=== PATIENT | male | born 1980 | race Caucasian/White ===

== ENCOUNTER 2020-06-16 02:38 | Emergency (ER) | payer BC ==
[~2020-06-16] VITALS: Ht 177.8 cm; Wt 104.3 kg
[2020-06-16 02:38] VITALS: BP 110/58
[2020-06-16] MEDS ORDERED: NACL 0.9% 1,000 ML IV ONE (03:00)
[2020-06-16] MEDS ORDERED: KETOROLAC 30 MG/ML VIAL IVP ONE (03:00)
[2020-06-16 03:33] LABS: BARBITURATE, URINE NEGATIVE ng/ml (NEG <=200); BENZODIAZEPINE, URINE POSITIVE ng/mL (NEG <=200); COCAINE, URINE NEGATIVE ng/mL (NEG <=300)
[2020-06-16 03:34] LABS: CANNABINOID, URINE NEGATIVE ng/mL (NEG <=50); OPIATE, URINE NEGATIVE ng/mL (NEG <=2000); PHENCYCLIDINE SCREEN,URINE NEGATIVE ng/mL (NEG <=25)
[2020-06-16 03:39] LABS: ANION GAP 14.6 (8-16); CARBON DIOXIDE 24.9 mmol/L (21-32); CREATININE 0.7 mg/dL (0.6-1.3); POTASSIUM 3.5 mmol/L (3.5-5.1)
[2020-06-16] MEDS ORDERED: fentaNYL citrate 0.05 MG/ML VIAL IVP ONE (05:10)
[2020-06-16] MEDS ORDERED: HYDROcodone/APAP 5/325 MG 1 TAB TAB PO ONE (05:50)
[2020-06-16 06:48] VITALS: BP 113/67
== END 2020-06-16 06:48 | disposition home or self-care (01) ==
LOC: MED 02:38
DX: M25.562 Pain in left knee (principal); M25.561 Pain in right knee; E11.9 Type 2 diabetes mellitus without complications; I10 Essential (primary) hypertension; W06.XXXA Fall from bed, initial encounter; Y93.89 Activity, other specified; Y92.89 Other specified places as the place of occurrence of the external cause; Y99.8 Other external cause status
CPT/HCPCS: 36415; 73560; 80048; 80305; 96361; 96374; 96375; 99284; G0482; J1885; J3010; J7030

== ENCOUNTER 2020-06-16 22:06 | Inpatient (IN) | payer BC, SELFPAY ==
[~2020-06-16] VITALS: Ht 180.3 cm; Wt 104.3 kg
[2020-06-16 22:12] VITALS: BP 141/81
--- NOTE | 2020-06-16 22:12 | NUR ---
to bed ambulatory
[2020-06-16] MEDS ORDERED: ONDANSETRON 4 MG/2 ML VIAL IVP ONE (22:35)
[2020-06-16] MEDS ORDERED: NACL 0.9% 1,000 ML IV ONE (22:35)
--- NOTE | 2020-06-16 22:45 | NUR ---
39 Y/O MALE PRESENTED TO THE ED C/O N/V BLOODY EMESIS ACCOMPANIED BY 8/10 DIFFUSE INTERMITTENT ABD PAIN THAT STARTED AT 2000 TODAY. PT IS A/OX4, NO VISIBLE DISTRESS NOTED. NO ABD GUARDING. ABD IS SOFT AND MILDY TENDER TO PALPATION. ACTIVE BOWEL SOUNDS IN ALL 4 QUADRANTS. NO DISTENTION OR MASSES NOTED. PMH: HTN, DM NKA
--- NOTE | 2020-06-16 22:50 | NUR ---
PT HAD 800ML OF BLOODY EMESIS
[2020-06-16 22:58] LABS: BASOPHILS # (AUTO) 0.1 K/uL (0.00-0.22); BASOPHILS % (AUTO) 0.7 % (0.0-2.0); EOSINOPHILS # (AUTO) 0.1 K/uL (0-0.4); EOSINOPHILS % (AUTO) 0.8 % (0.0-4.0); HEMATOCRIT 35.6 % (36-52); HEMOGLOBIN 11.9 g/dL (12.0-18.0); LYMPHOCYTES % (AUTO) 13.1 % (20.5-51.1); MEAN CORPUSCULAR HEMOGLOBIN 29 pg (27-31); MEAN CORPUSCULAR HGB CONC 33 g/dL (33-37); MEAN CORPUSCULAR VOLUME 87.6 fL (80-94); MONOCYTES # (AUTO) 0.7 K/uL (0.8-1.0); MONOCYTES % (AUTO) 9.1 % (1.7-9.3); NEUTROPHILS # (AUTO) 5.9 K/uL (1.8-7.7); NEUTROPHILS % (AUTO) 76.3 % (42.2-75.2); PLATELET COUNT (AUTO) 57 K/uL (140-450); RED BLOOD CELL COUNT(AUTO) 4.06 MIL/uL (4.20-6.10); RED CELL DISTRIBUTION WIDTH 17.6 % (11.6-13.7); WHITE BLOOD COUNT (AUTO) 7.8 K/uL (4.8-10.8)
--- NOTE | 2020-06-16 23:00 | NUR ---
18G IV INITIATED IN THE RIGHT WRIST
[2020-06-16] MEDS ORDERED: PANTOPRAZOLE 40 MG INJ VIAL IVP ONE (23:05)
--- NOTE | 2020-06-16 23:05 | NUR ---
PT IS SITTING UPRIGHT WITH EMESIS BASIN, PT IS CONNECTED TO THE TAX COLLECTION COORDINATOR. BED IS LOCKED AND IN LOWEST POSITION, SIDE RAILSX1.
--- NOTE | 2020-06-16 23:12 | NUR ---
XRAY AT BEDSIDE
[2020-06-16 23:18] LABS: PROTHROMBIN TIME 13.1 secs (10.8-13.4)
[2020-06-16 23:20] LABS: ALBUMIN 3.3 g/dL (3.4-5.0); ANION GAP 13.9 (8-16); CARBON DIOXIDE 24.8 mmol/L (21-32); CREATININE 0.7 mg/dL (0.6-1.3); POTASSIUM 3.7 mmol/L (3.5-5.1); TOTAL BILIRUBIN 4.1 mg/dL (0.0-1.0)
[2020-06-16] MEDS: PANTOPRAZOLE 80 MG in NACL 0.9% 100 ML IVP SCH (23:59)
[2020-06-17] VITALS (13 sets, daily range): BP systolic 86–144; BP diastolic 34–64
--- NOTE | 2020-06-17 | NUR ---
PT HAD 600 ML OF BLOODY EMESIS
--- NOTE | 2020-06-17 00:05 | NUR ---
PT IS SITTING UPRIGHT IN SEMI FOWLERS POSITION. BED IS LOCKED AND IN LOWEST POSITION. SIDE RAILX1. PT IS CONNECTED TO THE COKEMAN. PT IS NOT IN ANY ACUTE DISTRESS AT THIS TIME. CALL LIGHT WITHIN REACH. MEDS RUNNING PER MD ORDERS.
--- NOTE | 2020-06-17 00:20 | NUR ---
YUMIKO COLLECTED AND WALKED OVER TO LAB
--- NOTE | 2020-06-17 00:27 | NUR ---
Spoke w/ Shreya from [facility] regarding pt clinicals at this time. Per Shreya , she has paged Dr. Truong and will update us for authorization.
--- NOTE | 2020-06-17 00:30 | NUR ---
CT CONSENT SIGNED AND PLACED IN CHART
--- NOTE | 2020-06-17 00:43 | NUR ---
HOTEL SERVICE SUPERVISOR AT BEDSIDE PREPARING TO TAKE PT TO CT
--- NOTE | 2020-06-17 00:50 | NUR ---
ADEEL GEORGE AT BEDSIDE FOR RE-EVALUATION
[2020-06-17] MEDS ORDERED: ONDANSETRON 4 MG/2 ML VIAL ONE (00:55)
[2020-06-17] MEDS ORDERED: MORPHINE SULFATE 2 MG/ML SYR IVP ONE (01:00)
[2020-06-17] MEDS ORDERED: ONDANSETRON 4 MG/2 ML VIAL IVP ONE ×2 (01:00→01:10)
--- NOTE | 2020-06-17 01:00 | NUR ---
PT IS SITTING UPRIGHT IN SEMI FOWLERS POSITION. BED IS LOCKED AND IN LOWEST POSITION. SIDE RAILX1. PT IS CONNECTED TO THE RANCH HAND. PT IS NOT IN ANY ACUTE DISTRESS AT THIS TIME. CALL LIGHT WITHIN REACH. MEDS RUNNING PER MD ORDERS.
--- NOTE | 2020-06-17 01:18 | NUR ---
PT HAD 300 ML OF BLOODY EMESIS
[2020-06-17] MEDS ORDERED: OCTREOTIDE ACETATE 100 MCG/ML VIAL IV STA (01:20)
[2020-06-17] MEDS ORDERED: cefTRIAXone 1,000 MG VIAL ONE (01:43)
--- NOTE | 2020-06-17 01:46 | NUR ---
PT BACK FROM CT VIA RAHUL
[2020-06-17] MEDS ORDERED: OCTREOTIDE ACETATE 1.25 MG in NACL 0.9% 250 ML IV STA (01:56)
--- NOTE | 2020-06-17 02:05 | NUR ---
PT IS SITTING UPRIGHT IN SEMI FOWLERS POSITION. BED IS LOCKED AND IN LOWEST POSITION. SIDE RAILX1. PT IS CONNECTED TO THE AIRPLANE NAVIGATOR. PT IS NOT IN ANY ACUTE DISTRESS AT THIS TIME. CALL LIGHT WITHIN REACH. MEDS RUNNING PER MD ORDERS.
[2020-06-17] MEDS ORDERED: OCTREOTIDE ACETATE 1000 MCG/5 ML VIAL ONE (02:08)
[2020-06-17] MEDS ORDERED: OCTREOTIDE ACETATE 1.25 MG in NACL 0.9% 250 ML IV SCH ×2 (02:10→12:20)
[2020-06-17] MEDS ORDERED: PANTOPRAZOLE 80 MG in NACL 0.9% 100 ML IVP SCH ×2 (02:10→12:20)
--- NOTE | 2020-06-17 02:15 | NUR ---
ERMD AT BEDSIDE FOR RE-EVALUATION
[2020-06-17] MEDS ORDERED: OCTREOTIDE ACETATE 0.05 MG in NACL 0.9% 250 ML IV SCH (02:20)
[2020-06-17] MEDS ORDERED: MAG SULF 2000 MG/WATER PREMIX 50 ML IV PRN (02:20)
[2020-06-17] MEDS ORDERED: HYDROcodone/APAP 5/325 MG 1 TAB TAB PO PRN (02:20)
[2020-06-17] MEDS ORDERED: MORPHINE SULFATE 4 MG/ML SYR IVP PRN (02:20)
[2020-06-17] MEDS ORDERED: MAGNESIUM OXIDE 400 MG TAB PO PRN (02:20)
[2020-06-17] MEDS ORDERED: LORazepam 1 MG TAB PO PRN (02:20)
[2020-06-17] MEDS ORDERED: HYDROmorphone 1 MG/ML AMP IVP PRN (02:20)
[2020-06-17] MEDS ORDERED: ACETAMINOPHEN 325 MG TAB PO PRN (02:20)
[2020-06-17] MEDS ORDERED: KCL 20 MEQ/WATER INJ PREMIX 200 ML IV PRN (02:20)
[2020-06-17] MEDS ORDERED: POTASSIUM CHLORIDE 10 MEQ TABER PO PRN (02:20)
--- NOTE | 2020-06-17 02:23 | NUR ---
pt is had another 300 ml of blood emesis
--- NOTE | 2020-06-17 02:30 | NUR ---
SEIZURE PRECAUTIONS IN PLACE PER ADMIT ORDERS.
[2020-06-17 02:35] LABS: BASOPHILS # (AUTO) 0.1 K/uL (0.00-0.22); BASOPHILS % (AUTO) 0.8 % (0.0-2.0); EOSINOPHILS # (AUTO) 0.1 K/uL (0-0.4); EOSINOPHILS % (AUTO) 0.8 % (0.0-4.0); HEMATOCRIT 30.1 % (36-52); HEMOGLOBIN 10.2 g/dL (12.0-18.0); LYMPHOCYTES # (AUTO) 0.9 K/uL (2.0-11.5); LYMPHOCYTES % (AUTO) 8.5 % (20.5-51.1); MEAN CORPUSCULAR HEMOGLOBIN 30 pg (27-31); MEAN CORPUSCULAR HGB CONC 34 g/dL (33-37); MEAN CORPUSCULAR VOLUME 87.8 fL (80-94); MONOCYTES # (AUTO) 0.5 K/uL (0.8-1.0); MONOCYTES % (AUTO) 4.9 % (1.7-9.3); NEUTROPHILS # (AUTO) 8.6 K/uL (1.8-7.7); PLATELET COUNT (AUTO) 59 K/uL (140-450); RED BLOOD CELL COUNT(AUTO) 3.43 MIL/uL (4.20-6.10); RED CELL DISTRIBUTION WIDTH 17.7 % (11.6-13.7); WHITE BLOOD COUNT (AUTO) 10.1 K/uL (4.8-10.8)
--- NOTE | 2020-06-17 02:36 | NUR ---
DR. PADILLA SHOULD BE HERE WITHIN THE HOUR
--- NOTE | 2020-06-17 02:36 | NUR ---
SPOKE WITH DR. PADILLA (ICU DR) TO GIVE PT STATUS UPDATE
--- NOTE | 2020-06-17 02:45 | NUR ---
PT PLACED ON 2L OF SUPPLEMENTAL OXYGEN DUE TO THE PT C/O OF DIFFICULTY BREATHING SAO2@97% ON RA. AND PT SAO2@100% ON 2L NC.
--- NOTE | 2020-06-17 03:00 | NUR ---
PT IS SITTING UPRIGHT IN SEMI FOWLERS POSITION. BED IS LOCKED AND IN LOWEST POSITION. SIDE RAILX1. PT IS CONNECTED TO THE IS/IT PROJECT MANAGER. PT IS NOT IN ANY ACUTE DISTRESS AT THIS TIME. CALL LIGHT WITHIN REACH. MEDS RUNNING PER MD ORDERS.
[2020-06-17] MEDS ORDERED: NACL 0.9% IV SCH (03:20)
[2020-06-17] MEDS ORDERED: OCTREOTIDE ACETATE IV SCH (03:20)
--- NOTE | 2020-06-17 04:00 | NUR ---
PT IS SITTING UPRIGHT IN SEMI FOWLERS POSITION. BED IS LOCKED AND IN LOWEST POSITION. SIDE RAILX1. PT IS CONNECTED TO THE BIAS MACHINE OPERATOR HELPER. PT IS NOT IN ANY ACUTE DISTRESS AT THIS TIME. CALL LIGHT WITHIN REACH. MEDS RUNNING PER MD ORDERS.
[2020-06-17] MEDS: LACTATED RINGERS 1,000 ML IV SCH ×2 (04:33→14:50)
[2020-06-17] MEDS: POTASSIUM CHL 40 MEQ/ D5-1/2NS 1,000 ML IV SCH ×3 (04:34→18:04)
[2020-06-17] MEDS ORDERED: LORazepam 2 MG/ML VIAL IVP PRN (04:45)
--- NOTE | 2020-06-17 04:55 | NUR ---
PT HAD 50 ML OF BLOODY EMESIS
--- NOTE | 2020-06-17 05:00 | NUR ---
PT IS SITTING UPRIGHT IN SEMI FOWLERS POSITION. BED IS LOCKED AND IN LOWEST POSITION. SIDE RAILX1. PT IS CONNECTED TO THE CABINET INSTALLER. PT IS NOT IN ANY ACUTE DISTRESS AT THIS TIME. CALL LIGHT WITHIN REACH. MEDS RUNNING PER MD ORDERS.
--- NOTE | 2020-06-17 05:15 | NUR ---
URINE SPECIMEN COLLECTED AND HANDED OVER TO ELECTRONIC EQUIPMENT REPAIRER RAE
--- NOTE | 2020-06-17 05:57 | NUR ---
LIGHTS TURNED OFF FOR PT COMFORT. BED IS IN SEMI FOWLERS POSITION. PT IS CONNECTED TO THE SEMICONDUCTOR EQUIPMENT TECHNICIAN. BED IS LOCKED AND IN LOWEST POSITION. SEIZURE PRECAUTIONS IN PLACE. CALL LIGHT WITHIN REACH. MEDS AND FLUIDS RUNNING PER MD ORDERS.
[2020-06-17 06:07] LABS: BARBITURATE, URINE NEGATIVE ng/ml (NEG <=200)
[2020-06-17 06:08] LABS: BENZODIAZEPINE, URINE POSITIVE ng/mL (NEG <=200); CANNABINOID, URINE NEGATIVE ng/mL (NEG <=50); COCAINE, URINE NEGATIVE ng/mL (NEG <=300); OPIATE, URINE POSITIVE ng/mL (NEG <=2000); PHENCYCLIDINE SCREEN,URINE NEGATIVE ng/mL (NEG <=25)
--- NOTE | 2020-06-17 06:30 | NUR ---
PT HAD 150 ML OF BLOOD EMESIS
--- NOTE | 2020-06-17 06:49 | NUR ---
PT PROVIDED WITH SOME WATER TO RINSE OUT HIS MOUTH.
--- NOTE | 2020-06-17 07:00 | NUR ---
PEDIATRICIAN MANAGING PARTNER AT BEDSIDE
--- NOTE | 2020-06-17 07:05 | NUR ---
ULTRASOUND AT BEDSIDE
[2020-06-17 07:09] LABS: BASOPHILS % (AUTO) 0.2 % (0.0-2.0); HEMATOCRIT 26.2 % (36-52); HEMOGLOBIN 8.8 g/dL (12.0-18.0); LYMPHOCYTES # (AUTO) 0.8 K/uL (2.0-11.5); LYMPHOCYTES % (AUTO) 8.7 % (20.5-51.1); MEAN CORPUSCULAR HEMOGLOBIN 30 pg (27-31); MEAN CORPUSCULAR HGB CONC 33 g/dL (33-37); MEAN CORPUSCULAR VOLUME 88.9 fL (80-94); MONOCYTES # (AUTO) 0.4 K/uL (0.8-1.0); MONOCYTES % (AUTO) 4.3 % (1.7-9.3); NEUTROPHILS # (AUTO) 7.9 K/uL (1.8-7.7); NEUTROPHILS % (AUTO) 86.8 % (42.2-75.2); PLATELET COUNT (AUTO) 63 K/uL (140-450); RED BLOOD CELL COUNT(AUTO) 2.95 MIL/uL (4.20-6.10); RED CELL DISTRIBUTION WIDTH 17.9 % (11.6-13.7); WHITE BLOOD COUNT (AUTO) 9.1 K/uL (4.8-10.8)
--- NOTE | 2020-06-17 07:10 | NUR ---
ADEEL MARROQUIN AT BEDSIDE FOR HYPOTENSION
--- NOTE | 2020-06-17 07:20 | NUR ---
GAVE REPORT TO NEELAM LUNA FOR TRANSFER OF CARE AT THIS TIME.
--- NOTE | 2020-06-17 07:21 | NUR ---
RECEIVED REPORT FROM FARZANA RICHTER. TRANSFER OF CARE AT THIS TIME.
--- NOTE | 2020-06-17 07:25 | NUR ---
US TECH AT PT BEDSIDE
--- NOTE | 2020-06-17 07:26 | NUR ---
PHARMACY NOTIFIED TO BRING LIBRIUM 10 MG CAPSULES
--- NOTE | 2020-06-17 07:56 | NUR ---
PT VOMITED COAGULATED BRIGHT RED BLOOD- 800 ML. PT HOB RAISED TO 90. PT USED BEDSIDE URINAL- 500 ML JUAN LUIS URINE
[2020-06-17 08:07] LABS: APPEARANCE,URINE CLEAR (CLEAR); BILIRUBIN,URINE NEGATIVE (NEGATIVE); BLOOD, URINE NEGATIVE (NEGATIVE); COLOR,URINE ORANGE (YELLOW); LEUKOCYTE ESTERASE ,URINE NEGATIVE (NEGATIVE); NITRITE, URINE NEGATIVE (NEGATIVE); UGLUCOSE 3+ (NEGATIVE)
[2020-06-17 08:30] LABS: RBC,URINE NONE SEEN /HPF (0-5); WBC,URINE 0-5 /HPF (0-5)
--- NOTE | 2020-06-17 08:41 | NUR ---
PT RESTING IN BED WITH HOB 45 DEGREES. BED IN LOWEST POSITION WITH BRAKES LOCKED. EVEN AND UNLABORED RESPIRATIONS OBSERVED.
[2020-06-17] MEDS: DOCUSATE SODIUM 100 MG GELCAP PO SCH (09:00)
--- NOTE | 2020-06-17 09:23 | NUR ---
SOCIAL WORK NOTE: Patient's Orientation Unable To Assess Information Provided By CAROLANN DE LOS SANTOS - SIGNIFICANT OTHER Comments SW WAS UNABLE TO MEET PATIENT AT BEDSIDE. SW COMPLETED ASSESSMENT WITH PATIENT'S SIGNIFICANT OTHER/FIANCE. [place] Paver Operator, Realtionship and Phone Number CAROLANN MAGALI SIGNIFICANT OTHER [phone] Healthcare Power of Lpn Rn No Does Patient Have a POLST No Identifying Problems No Social Work Triggers Is A Social Work Consult Needed No Mandate Report Filed No Explanation Of Identifying Problems PATIENT IS A 39-YEAR-OLD MALE ADMITTED FOR ACUTE GASTRO INTESTINAL BLEED. PATIENT HAS PMHX OF DIABETES AND HYPERTENSION. PATIENT'S SIGNIFICANT OTHER DENIED SUBSTANCE ABUSE OR MENTAL HEALTH HISTORY. Admitted From Home Pre-Admission Level Of Functioning Status Independent/Ambulatory Prior Resources/Services Used In Last 12 Months No Prior Resources Used Prior DME No Prior DME Used Dialysis Comments N/A Living Situation Lives W/Significant Other House Patient Had Caregiver No Home Support No Caregiver Issues Financial Issues No Known Financial Issue Referral To The Financial Counselor Needed No Factors/Needs No D/C Needs Identified Pt/Rep Participated In Discharge Plan Yes Patient/Family Agress With Discharge Plan Yes Discharge Plan Comments TENTATIVE DISCHARGE PLAN IS FOR PATIENT TO RETURN HOME. DC Plan Status Initiated
--- NOTE | 2020-06-17 09:27 | NUR ---
CALLED PHARMACY FOR PROTONIX 80MG, THEY WILL BRING IT OVER.
--- NOTE | 2020-06-17 09:41 | NUR ---
GAVE REPORT TO RAIN RN FOR TRANSFER TO ICU. BED NOT READY. PENDING TRANSFER
--- NOTE | 2020-06-17 09:55 | NUR ---
PT DRY HEAVING AND NAUSEOUS WITH 0ML EMESIS. PT HOB 90 DEGREES
[2020-06-17] MEDS: PANTOPRAZOLE 80 MG in NACL 0.9% 100 ML IVP SCH (10:09)
--- NOTE | 2020-06-17 10:30 | NUR ---
PLATELETS STILL INFUSING AT TIME OF TRANSFER AT 60ML/HR. RAIN RICHTER MADE AWARE.
--- NOTE | 2020-06-17 10:53 | NUR ---
Patient will be admitted to care of Gordy Cantu. Admited to ICU. Will go to room2. Belongings list completed. Report to Jillian RICHTER.
--- NOTE | 2020-06-17 10:53 | NUR ---
RECEIVED PT FROM LIFE SKILLS INSTRUCTORJEREMY AT THIS TIME. PT AWAKE, A/O X4. DENIES PAIN. PUPILS 3MM, PERRL. CONTINUES ON O2 VIA NC @ 2 LPM. SPO2 99%. NO SOB OBSERVED. LUNGS CLEAR THROUGHOUT. +S1, S2 UPON AUSCULTATION. ST ON MONITOR AT 116. BOWEL SOUNDS ACTIVE X4. NO ABD DISTENTION NOTED. DENIES ABD DISCOMFORT. PT REMAINS NPO EXCEPT MEDS. 18G TO RT AC INFUSING PLATELETS. 20G TO RT FA INFUSING SANDOSTATIN AND PROTONIX. 22G TO LT HAND INFUSING D5 1/2 NS WITH POTASSIUM CHLORIDE AND LR. SEE IV SPREADSHEET FOR DETAILS. SKIN WARM, DRY, AND INTACT WITH SCATTERED ECCHYMOSIS NOTED TO BI UPPER EXTREMITIES DUE TO IV PLACEMENT ATTEMPTS. NO ACTIVE BLEEDING OBSERVED. SAFETY PRECAUTIONS IN PLACE WITH BED LOW AND LOCKED. EDUCATED PT ON IMPORTANCE OF REQUESTING ASSISTANCE WHEN REPOSITIONING. WILL CONT TO MONITOR FOR CHANGES.
--- NOTE | 2020-06-17 11:57 | NUR ---
DISCHARGE PLANNING: THIS IS A 39 Y/O MALE PATIENT FROM HOME, WHO CAME IN DUE TO VOMITING ASSOCIATED WITH ABDOMINAL PAIN. PAST MEDICAL HISTORY INCLUDE HTN AND DM 2. INITIAL DIAGNOSIS OF ACUTE GI BLEED. CURRENT LABS INCLUDE WBC 11.5, H/H 6.9/21.1, NA/K 136/3.7, BUN/CREA 7/0.7. RAPID COVID NEGATIVE. PULMO/CRITICAL CARE AND GI CONSULTS IN PLACE. ON OCTREOTIDE DRIP, ROCEPHIN. ABDOMINAL U/S SHOWED ACUTE CHOLECYSTITIS, HEPATOMEGALY WITH STEATOSIS, SPLENOMEGALY. DC PLAN PENDING ON PATIENT'S RESPONSE TO TREATMENT. Addendum: 06/17/20 at 1521 by Manisha Beach CM POC DISCUSSED WITH DR. VALLES. PER DR. VALLES, WILL WAIT FOR GI'S RECOMMENDATIONS. Addendum: 06/17/20 at 1549 by Manisha Beach CM DIANE DONOVAN OF [facility] UPDATED OF THE PATIENT'S CONDITION SHE PROVIDED ME WITH VERBAL AUTH [id number]. Addendum: 06/18/20 at 1109 by Manisha Beach CM S/P EGD WITH DR WHITMAN 06/17/2020. STILL ON PROTONIX IV AND SANDOSTATIN DRIP. LATEST H/H 7.9/23.7 AFTER 2 "U" PRBC. FOR POSSIBLE DOWNGRADE TODAY. Addendum: 06/18/20 at [address] CM DR. VALLES UPDATED OF THE PATIENT'S CONDITION. OK TO DOWNGRADE TO TELE. ORDER TRANSCRIBED. PRIMARY NEELAM MANTILLA MADE AWARE. Addendum: 06/18/20 at 1434 by Manisha Beach CM DIANE COATES MG UPDATED OF THE PATIENT'S CONDITION. I ALSO INFORMED HER THAT PATIENT IS FOR DOWNGRADE TO TELE TODAY. Addendum: 06/19/20 at 1201 by Jocelyn Vegas RN DC PLANNING: RECEIVED A CALL FROM [facility] SPOKE WITH SHEKHAR CONTRERAS STATED IF PT IS STABLE FOR TRANSFER CAN GO TO CONTRACTED FACILITY. I UPDATED HER WITH THE CLINICALS, EXPLAINED TO PATIENT AND NOTIFIED DR VALLES. AWAITING FOR TRANSFER ORDER. CM TO FOLLOW
--- NOTE | 2020-06-17 12:26 | NUR ---
SPOKE WITH DR DOUGLAS AT THIS TIME. SANDOSTATIN AND PROTONIX DRIP RENEWED.
[2020-06-17 12:39] LABS: LYMPHOCYTES # (AUTO) 1.1 K/uL (2.0-11.5); MONOCYTES # (AUTO) 0.9 K/uL (0.8-1.0)
[2020-06-17 13:17] LABS: BASOPHILS % (AUTO) 0.2 % (0.0-2.0); HEMATOCRIT 21.1 % (36-52); LYMPHOCYTES % (AUTO) 9.1 % (20.5-51.1); MEAN CORPUSCULAR HEMOGLOBIN 29 pg (27-31); MEAN CORPUSCULAR HGB CONC 33 g/dL (33-37); MEAN CORPUSCULAR VOLUME 89.9 fL (80-94); MONOCYTES % (AUTO) 7.8 % (1.7-9.3); NEUTROPHILS # (AUTO) 9.6 K/uL (1.8-7.7); NEUTROPHILS % (AUTO) 82.9 % (42.2-75.2); PLATELET COUNT (AUTO) 121 K/uL (140-450); RED BLOOD CELL COUNT(AUTO) 2.35 MIL/uL (4.20-6.10); RED CELL DISTRIBUTION WIDTH 17.8 % (11.6-13.7); WHITE BLOOD COUNT (AUTO) 11.5 K/uL (4.8-10.8)
[2020-06-17 13:32] LABS: HEMOGLOBIN 6.9 g/dL (12.0-18.0)
--- NOTE | 2020-06-17 13:57 | NUR ---
PATIENT HAS BEEN SCREENED AND CATEGORIZED MODERATE NUTRITION RISK. PATIENT WILL BE SEEN WITHIN 3-5 DAYS OF ADMISSION. 06/19/20 06/21/[address]
--- NOTE | 2020-06-17 14:47 | NUR ---
1ST UNIT OF PRBC STARTED AT THIS TIME. WILL CONT TO MONITOR CLOSELY.
[2020-06-17] MEDS ORDERED: MIDAZOLAM 5 MG/5 ML VIAL ONE (16:00)
[2020-06-17] MEDS ORDERED: diphenhydrAMINE 50 MG/ML VIAL ONE (16:00)
[2020-06-17] MEDS ORDERED: fentaNYL citrate 0.05 MG/ML VIAL ONE (16:00)
--- NOTE | 2020-06-17 16:20 | NUR ---
DR WHITMAN AT BEDSIDE, WITH TEAM, TO PERFORM EGD.
[2020-06-17] MEDS ORDERED: PROPRANOLOL 1 MG/ML VIAL IVP ONE ×2 (17:03→17:35)
[2020-06-17] MEDS ORDERED: fentaNYL citrate 0.05 MG/ML VIAL IVP ONE (17:35)
[2020-06-17] MEDS ORDERED: MIDAZOLAM 2 MG/2 ML VIAL IVP ONE (17:35)
[2020-06-17] MEDS: OCTREOTIDE ACETATE 1.25 MG in NACL 0.9% 250 ML IV SCH (18:03)
[2020-06-17 18:06] LABS: BASOPHILS % (AUTO) 0.1 % (0.0-2.0); HEMATOCRIT 23.8 % (36-52); HEMOGLOBIN 7.9 g/dL (12.0-18.0); LYMPHOCYTES # (AUTO) 1.5 K/uL (2.0-11.5); LYMPHOCYTES % (AUTO) 11.1 % (20.5-51.1); MEAN CORPUSCULAR HEMOGLOBIN 30 pg (27-31); MEAN CORPUSCULAR HGB CONC 33 g/dL (33-37); MEAN CORPUSCULAR VOLUME 91.1 fL (80-94); MONOCYTES # (AUTO) 1.6 K/uL (0.8-1.0); NEUTROPHILS % (AUTO) 76.8 % (42.2-75.2); PLATELET COUNT (AUTO) 105 K/uL (140-450); RED BLOOD CELL COUNT(AUTO) 2.62 MIL/uL (4.20-6.10); RED CELL DISTRIBUTION WIDTH 17.3 % (11.6-13.7); WHITE BLOOD COUNT (AUTO) 13.1 K/uL (4.8-10.8)
[2020-06-17] MEDS: chlordiazePOXIDE 25 MG CAP PO SCH ×2 (18:09→20:45)
--- NOTE | 2020-06-17 18:29 | NUR ---
1ST UNIT OF PRBC COMPLETE. NO ADVERSE REACTION NOTED. WILL CONT TO MONITOR.
--- NOTE | 2020-06-17 19:30 | NUR ---
RECEIVED REPORT FROM [facility] PATIENT IS S/P EGD TODAY ,IS AWAKE ALERT ORIENTED IN NO ACUTE DISTRESS DENIES ANY PAIN NO NAUSEA NO VOMITING.OATIENT IS ON SANDOSTATIN DRIP AT 100MCG/HR AND MAINTENANCE IV OF D0.45 NS AT 80 CC/HRHR BLOOD STARTED ON SECOND UNIT OF BLOOD
[2020-06-17] MEDS: LACTULOSE 20 GM/30 ML UDC PO SCH (20:44)
[2020-06-17] MEDS: SODIUM FERRIC GLUCONATE 125 MG in NACL 0.9% 100 ML IV SCH (21:00)
--- NOTE | 2020-06-17 23:00 | NUR ---
PATIENT TOLERATED SECOND UNIT OF BLOOD W/O ANY UNTOWARD REACTION. VITAL SIGNS REMAIN STABLE,PATIENT CONTINUE ON SANDOSTATIN DRIP AND IVF ,NO VOMITING NOTED.
[2020-06-18] VITALS (17 sets, daily range): BP systolic 91–119; BP diastolic 21–66
[2020-06-18 00:59] LABS: BASOPHILS % (AUTO) 0.3 % (0.0-2.0); EOSINOPHILS % (AUTO) 0.1 % (0.0-4.0); HEMATOCRIT 24.5 % (36-52); HEMOGLOBIN 8.2 g/dL (12.0-18.0); LYMPHOCYTES % (AUTO) 13.7 % (20.5-51.1); MEAN CORPUSCULAR HEMOGLOBIN 30 pg (27-31); MEAN CORPUSCULAR HGB CONC 33 g/dL (33-37); MEAN CORPUSCULAR VOLUME 91.1 fL (80-94); MONOCYTES # (AUTO) 1.6 K/uL (0.8-1.0); NEUTROPHILS # (AUTO) 10.8 K/uL (1.8-7.7); NEUTROPHILS % (AUTO) 74.9 % (42.2-75.2); PLATELET COUNT (AUTO) 89 K/uL (140-450); RED BLOOD CELL COUNT(AUTO) 2.69 MIL/uL (4.20-6.10); RED CELL DISTRIBUTION WIDTH 16.6 % (11.6-13.7); WHITE BLOOD COUNT (AUTO) 14.5 K/uL (4.8-10.8)
[2020-06-18] MEDS: LANSOPRAZOLE 30 MG CAPDR PO SCH (05:36)
[2020-06-18] MEDS: chlordiazePOXIDE 25 MG CAP PO SCH ×3 (05:36→21:35)
--- NOTE | 2020-06-18 07:10 | NUR ---
RECEIVED REPORT FROM STUDENT SERVICES COORDINATOR RN FOR CONTINUITY OF CARE, PATIENT IS AOX4, NO COMPLAINTS OF PAIN, ABLE TO MAKE NEEDS KNOWN, RA SATURATING IN MID 90S, ABLE TO USE URINAL AND BEDPAN, GLUING MACHINE OPERATOR IN PLACE, PULSE OXIMETER IN PLACE, SAFETY MEASURES IN PLACE, BED IN LOW POSITION, WILL CONTINUE TO MONITOR.
[2020-06-18 07:48] LABS: BASOPHILS # (AUTO) 0.1 K/uL (0.00-0.22); BASOPHILS % (AUTO) 0.4 % (0.0-2.0); EOSINOPHILS % (AUTO) 0.1 % (0.0-4.0); HEMATOCRIT 23.7 % (36-52); HEMOGLOBIN 7.9 g/dL (12.0-18.0); LYMPHOCYTES % (AUTO) 14.2 % (20.5-51.1); MEAN CORPUSCULAR HEMOGLOBIN 30 pg (27-31); MEAN CORPUSCULAR HGB CONC 33 g/dL (33-37); MEAN CORPUSCULAR VOLUME 91.1 fL (80-94); MONOCYTES # (AUTO) 1.7 K/uL (0.8-1.0); MONOCYTES % (AUTO) 12.2 % (1.7-9.3); NEUTROPHILS # (AUTO) 10.4 K/uL (1.8-7.7); NEUTROPHILS % (AUTO) 73.1 % (42.2-75.2); PLATELET COUNT (AUTO) 77 K/uL (140-450); RED CELL DISTRIBUTION WIDTH 16.7 % (11.6-13.7); WHITE BLOOD COUNT (AUTO) 14.2 K/uL (4.8-10.8)
[2020-06-18 08:06] LABS: ALBUMIN 2.5 g/dL (3.4-5.0); ANION GAP 11.6 (8-16); CARBON DIOXIDE 24.3 mmol/L (21-32); CHOL/HDL RATIO 2.9 (1-4.5); CREATININE 0.8 mg/dL (0.6-1.3); POTASSIUM 3.9 mmol/L (3.5-5.1); TOTAL BILIRUBIN 4.1 mg/dL (0.0-1.0)
[2020-06-18 08:10] LABS: PROTHROMBIN TIME 16.4 secs (10.8-13.4)
[2020-06-18] MEDS: PROPRANOLOL 20 MG TAB PO SCH ×3 (09:00→17:15)
[2020-06-18] MEDS: SODIUM FERRIC GLUCONATE 125 MG in NACL 0.9% 100 ML IV SCH ×2 (10:26→21:05)
[2020-06-18] MEDS: LACTULOSE 20 GM/30 ML UDC PO SCH ×2 (10:26→21:36)
[2020-06-18] MEDS: DOCUSATE SODIUM 100 MG GELCAP PO SCH (10:26)
[2020-06-18] MEDS: POTASSIUM CHL 40 MEQ/ D5-1/2NS 1,000 ML IV SCH (11:08)
[2020-06-18] MEDS: OCTREOTIDE ACETATE 1.25 MG in NACL 0.9% 250 ML IV SCH (11:54)
--- NOTE | 2020-06-18 11:54 | NUR ---
CHECKED ON PATIENT, IN COMFORTABLE POSITION, NO REPORTS OF PAIN, ADMINISTERED NEW BAG OF SANDOSTATIN, MACHINE CELL TUBER, PULSE OXIMETER, AND SAFETY MEASURES IN PLACE, BED IN LOW POSITION, WILL CONTINUE TO MONITOR.
--- NOTE | 2020-06-18 13:30 | NUR ---
ADMINISTERED AFTERNOON SCHEDULED MEDS, PATIENT IN COMFORTABLE POSITION AND RESTING, NO REPORTS OF PAIN, DIGITAL CONTENT MANAGER, PULSE OXIMETER, SAFETY MEASURE IN PLACE, CALL LIGHT WITHIN REACH,BED IN LOW POSITION, WILL CONTINUE TO MONITOR.
--- NOTE | 2020-06-18 14:05 | NUR ---
DR. VALLES CALLED, UPDATED ON PATIENT STATUS, WILL CONTINUE TO MONITOR.
--- NOTE | 2020-06-18 14:16 | NUR ---
TOP PRINTING PRESS OPERATOR CALLED, UPDATED ON PATIENT'S STATUS, STATES WILL DOWNGRADE PATIENT.
--- NOTE | 2020-06-18 14:30 | NUR ---
GIULIANA TELE HEAD OF HUMAN RESOURCES NOTIFIED OF DOWNGRADE, PER GIULIANA, NO RN AVAILABLE NOW, WILL BE ENTRY LEVEL TO TRANSFER. PRIMARY RN ANNALEE MADE AWARE.
--- NOTE | 2020-06-18 17:21 | NUR ---
ADMINISTERED SCHEDULED PM MEDS, NO SIGNS OF PAIN, METALLURGICAL LAB TECHNICIAN AND PULSE OXIMETER, AND SAFETY MEASURES IN PLACE, BED IN LOW POSITION, CALL LIGHT WITHIN REACH, WILL CONTINUE TO MONITOR.
--- NOTE | 2020-06-18 17:59 | NUR ---
DR.CHANG PITT, UPDATED ON PATIENT'S STATUS AND AWARE OF PATIENT BEING DOWNGRADED TO TELE. WILL CONTINUE TO MONITOR.
--- NOTE | 2020-06-18 18:30 | NUR ---
CHECKED ON PATIENT, AOX4, ON ROOM AIR, SATURATING IN MID 90S, NO REPORTS OF PAIN, ATE ABOUT 50% OF DINNER, STATED WAS TOO MUCH, URINAL AND CALL LIGHT WITHIN REACH, SERVICE DELIVERY MANAGER, PULSE OXIMETER, SAFETY MEASURES IN PLACE, BED IN LOW POSITION, WILL CONTINUE TO MONITOR.
--- NOTE | 2020-06-18 19:07 | NUR ---
ENDORSED TO GAME ATTENDANT NURSE, SHEEBA RICHTER, FOR CONTINUITY OF CARE.
--- NOTE | 2020-06-18 19:30 | NUR ---
PT IS A&O X4, S1S2 NOTED, SR ON MONITOR. PT HAS RT HAND 18g ASYMPTOMATIC AND PATENT RUNNING SANDOSTATIN AND D5 1/2 NS WITH 40 MEQ OF KCL @ 40ML/HR. RT AC HAS REDNESS AND PAIN AT INSERTION SITE, PAINFUL WHEN FLUSHED, REMOVED IV. LUNG SOUNDS CLEAR, PT IS ON RM AIR: 92%. BOWEL SOUNDS ACTIVE IN ALL 4 QUADRANTS. 40ML OF YELLOW/ORANGE URINE IN URINAL NOTED. SKIN: BRUISING TO MELONY ARMS, SKIN OTHERWISE INTACT. SAFETY MEASURES IN PLACE, BED LOW AND LOCKED, 2 SIDE RAILS UP, WILL CONT TO MONITOR.
--- NOTE | 2020-06-18 20:00 | NUR ---
CALLED AND GAVE REPORT TO [facility] NURSE ROSA M.
--- NOTE | 2020-06-18 20:40 | NUR ---
TRANSFERRED PT TO [facility] EMERGENCY DEPARTMENT.
--- NOTE | 2020-06-18 21:00 | NUR ---
RECEIVED PATIENT FROM ICU. PATIENT AWAKE, ALERT AND ORIENTED. PT ON ROOM AIR. NO SOB OR S/S OF DISTRESS. PT DENIES PAIN. PT ON TELE MONITORING. BED LOWERED WITH CALL LIGHT WITHIN REACH
[2020-06-18] MEDS: GLIMEPIRIDE 2 MG TAB PO SCH (21:35)
--- NOTE | 2020-06-18 22:30 | NUR ---
PATIENT AMBULATED TO THE BATHROOM TO HAVE A BOWEL MOVEMENT. PT REPORTS STOOL TO BE LOOSE AND MODERATE IN AMOUNT. PT ON LACTULOSE
[2020-06-19 00:47] VITALS: BP 92/47
--- NOTE | 2020-06-19 03:10 | NUR ---
PT ASLEEP IN BED. NO S/S OF DISTRESS NOTED
[2020-06-19] MEDS: chlordiazePOXIDE 25 MG CAP PO SCH ×2 (06:01→13:12)
[2020-06-19] MEDS: OCTREOTIDE ACETATE 1.25 MG in NACL 0.9% 250 ML IV SCH (06:01)
[2020-06-19] MEDS: LANSOPRAZOLE 30 MG CAPDR PO SCH (06:02)
[2020-06-19 06:14] VITALS: BP 116/45
[2020-06-19 06:14] LABS: BASOPHILS # (AUTO) 0.1 K/uL (0.00-0.22); BASOPHILS % (AUTO) 0.5 % (0.0-2.0); EOSINOPHILS # (AUTO) 0.1 K/uL (0-0.4); EOSINOPHILS % (AUTO) 0.9 % (0.0-4.0); HEMATOCRIT 21.6 % (36-52); HEMOGLOBIN 7.3 g/dL (12.0-18.0); LYMPHOCYTES % (AUTO) 17.6 % (20.5-51.1); MEAN CORPUSCULAR HEMOGLOBIN 31 pg (27-31); MEAN CORPUSCULAR HGB CONC 34 g/dL (33-37); MEAN CORPUSCULAR VOLUME 91.9 fL (80-94); MONOCYTES # (AUTO) 1.4 K/uL (0.8-1.0); MONOCYTES % (AUTO) 11.7 % (1.7-9.3); NEUTROPHILS % (AUTO) 69.3 % (42.2-75.2); PLATELET COUNT (AUTO) 79 K/uL (140-450); RED BLOOD CELL COUNT(AUTO) 2.35 MIL/uL (4.20-6.10); RED CELL DISTRIBUTION WIDTH 16.9 % (11.6-13.7); WHITE BLOOD COUNT (AUTO) 11.6 K/uL (4.8-10.8)
[2020-06-19 06:20] LABS: ALBUMIN 2.3 g/dL (3.4-5.0); ANION GAP 9.4 (8-16); CARBON DIOXIDE 26.1 mmol/L (21-32); CREATININE 0.7 mg/dL (0.6-1.3); POTASSIUM 3.5 mmol/L (3.5-5.1); TOTAL BILIRUBIN 3.3 mg/dL (0.0-1.0)
--- NOTE | 2020-06-19 07:20 | NUR ---
RECEIVED ENDORSEMENT FROM HYPERION ADMINISTRATOR RN . PT IS STABLE RESTING IN BED ON TRACH TO VENT FIO2 30%, SPO2 100%. CALL LIGHT WITHIN REACH. SAFETY MEASURES IN PLACE. Addendum: 06/19/20 at 0953 by Nighat Evangelista RN WRONG PATIENT: RECEIVED ENDORSEMENT FROM HYPERION ADMINISTRATOR RN . PT IS STABLE RESTING IN BED ON RA. CALL LIGHT WITHIN REACH. SAFETY MEASURES IN PLACE.
[2020-06-19] MEDS: GLIMEPIRIDE 2 MG TAB PO SCH (08:40)
[2020-06-19] MEDS: DOCUSATE SODIUM 100 MG GELCAP PO SCH (08:42)
[2020-06-19] MEDS: LACTULOSE 20 GM/30 ML UDC PO SCH (08:42)
[2020-06-19] MEDS: SODIUM FERRIC GLUCONATE 125 MG in NACL 0.9% 100 ML IV SCH (08:42)
[2020-06-19] MEDS: PROPRANOLOL 20 MG TAB PO SCH ×3 (08:43→16:43)
--- NOTE | 2020-06-19 09:53 | NUR ---
SCHEDULED MEDICATION GIVEN TOLERATED WELL. DENIES ANY DISCOMFORT. LUNG SOUNDS CLEAR ABD IS SOFT AND NONTENDER REPORTS LOOSE STOOL PT ON LACTULOSE DUE TO ELEVATED AMMONIUM. AAOX4. SKIN INTACT BRUISING TO LEFT AC DUE TO OLD IV ACCESS RECEIVING FLUIDS TO RIGHT WRIST WITH NO ISSUES. Addendum: 06/19/20 at 0957 by Nighat Evangelista RN RECEIVED CALL FROM LAB TO REPORT PT IS MRSA IN THE NARES WILL INITIATE CONTACT PRECAUTION.
[2020-06-19] MEDS ORDERED: MUPIROCIN CA NASAL 2% 1GM TUBE NS SCH (10:35)
[2020-06-19] MEDS ORDERED: CHLORHEXADINE GLUC 2% CLOTH TP SCH (10:35)
--- NOTE | 2020-06-19 10:45 | NUR ---
CHLORHEXIDINE CLEANING AND NEOSPORIN TREATMENT COMPLETE TOLERATED WELL.
[2020-06-19 12:00] VITALS: BP 114/49
--- NOTE | 2020-06-19 12:53 | NUR ---
SPOKE WITH DR. VALLES ORDERED REDO OF CBC TO CONFIRM H/H NUMBERS PT DENIES ANY VOMITING NO ACTIVE BLEEDING OBSERVED NO OPEN CUTS OR WOUNDS DENIES BLEEDING IN URINATION OR DURING BM.
[2020-06-19 13:00] LABS: BASOPHILS # (AUTO) 0.1 K/uL (0.00-0.22); BASOPHILS % (AUTO) 0.7 % (0.0-2.0); EOSINOPHILS # (AUTO) 0.2 K/uL (0-0.4); EOSINOPHILS % (AUTO) 1.4 % (0.0-4.0); HEMATOCRIT 25.5 % (36-52); HEMOGLOBIN 8.4 g/dL (12.0-18.0); LYMPHOCYTES # (AUTO) 2.4 K/uL (2.0-11.5); LYMPHOCYTES % (AUTO) 18.9 % (20.5-51.1); MEAN CORPUSCULAR HEMOGLOBIN 31 pg (27-31); MEAN CORPUSCULAR HGB CONC 33 g/dL (33-37); MEAN CORPUSCULAR VOLUME 93.2 fL (80-94); MONOCYTES # (AUTO) 1.2 K/uL (0.8-1.0); MONOCYTES % (AUTO) 9.8 % (1.7-9.3); NEUTROPHILS # (AUTO) 8.6 K/uL (1.8-7.7); NEUTROPHILS % (AUTO) 69.2 % (42.2-75.2); PLATELET COUNT (AUTO) 105 K/uL (140-450); RED BLOOD CELL COUNT(AUTO) 2.73 MIL/uL (4.20-6.10); RED CELL DISTRIBUTION WIDTH 17.1 % (11.6-13.7); WHITE BLOOD COUNT (AUTO) 12.5 K/uL (4.8-10.8)
--- NOTE | 2020-06-19 14:06 | NUR ---
RESTING IN BED IN NO DISTRESS. REPEAT CBC H/H 8.4/25.5 DR. VALLES NOTIFIED AWAITING RESPONSE.
[2020-06-19] MEDS: POTASSIUM CHL 40 MEQ/ D5-1/2NS 1,000 ML IV SCH (15:10)
[2020-06-19] MEDS ORDERED: LANS30EC68 PO (15:14)
[2020-06-19] MEDS ORDERED: GLIM2TAB PO (15:14)
[2020-06-19] MEDS ORDERED: PROP20TA29 PO (15:14)
[2020-06-19 16:00] VITALS: BP 99/49
[2020-06-19 16:14] VITALS: BP 99/59
--- NOTE | 2020-06-19 17:32 | NUR ---
DISCHARGE INSTRUCTIONS GIVEN VERBALIZED UNDERSTANDING AWAITING FAMILY TO PRISONER CLASSIFICATION INTERVIEWER.
--- NOTE | 2020-06-19 18:00 | NUR ---
PT DISCHARGE AT THIS TIME. DISCHARGE WITH ALL BELONGINGS INCLUDING CELL PHONE, WALLET, CLOTHES AND EAR PHONES, DISCHARGED WITH DISCHARGE INSTRUCTIONS AAOX 4 AMBULATING WITH STEADY GAIT.
== END 2020-06-19 18:00 | disposition home or self-care (01) | DRG 432 ==
LOC: MED 22:06 → MTU 06-17 02:30 → MIC 06-17 10:25 → MMU 06-18 20:50
PROVIDERS: ADMIT Hospitalist; ATTEND Hospitalist
PROC: 30233R1 Transfusion of Nonautologous Platelets into Peripheral Vein, Percutaneous Approach (ICD-10-PCS; 2020-06-17)
PROC: 30233N1 Transfusion of Nonautologous Red Blood Cells into Peripheral Vein, Percutaneous Approach (ICD-10-PCS; 2020-06-17)
PROC: 06L38CZ Occlusion of Esophageal Vein with Extraluminal Device, Via Natural or Artificial Opening Endoscopic (ICD-10-PCS; principal; 2020-06-18)
DX: K70.30 Alcoholic cirrhosis of liver without ascites (principal); I85.11 Secondary esophageal varices with bleeding; K76.6 Portal hypertension; D62 Acute posthemorrhagic anemia; E11.9 Type 2 diabetes mellitus without complications; E66.9 Obesity, unspecified; F10.10 Alcohol abuse, uncomplicated; I10 Essential (primary) hypertension; I86.4 Gastric varices; K31.89 Other diseases of stomach and duodenum; Z20.822 Contact with and (suspected) exposure to COVID-19; Y90.0 Blood alcohol level of less than 20 mg/100 ml; D69.6 Thrombocytopenia, unspecified; K76.0 Fatty (change of) liver, not elsewhere classified; Z87.891 Personal history of nicotine dependence; Z79.84 Long term (current) use of oral hypoglycemic drugs; Z79.899 Other long term (current) drug therapy; Z68.32 Body mass index [BMI] 32.0-32.9, adult
CPT/HCPCS: 36415; 71045; 76700; 80053; 80305; 81001; 82140; 83036; 83690; 85025; 85610; 85730; 86886; 86900; 86901; 86920; 87081; 96361; 96365; 96366; 96368; 96375; 96376; 99291; C9113; G0482; J0696; J1200; J1800; J2250; J2270; J2354; J2405; J2916; J3010; J7030; J7060; J7120; P9016; P9035; Q9967

== ENCOUNTER 2020-08-29 20:06 | Emergency (ER) | payer BC, SELFPAY ==
[~2020-08-29] VITALS: Ht 180.3 cm; Wt 107.0 kg
[~2020-08-29 20:06] MED LIST: GLIM2TAB PO; LANS30EC68 PO; PROP20TA29 PO
[2020-08-29 20:24] VITALS: BP 161/95
--- NOTE | 2020-08-29 20:29 | NUR ---
PT AMBULATED TO BED 09, STEADY GAIT
--- NOTE | 2020-08-29 20:37 | NUR ---
ERMD AT BEDSIDE EVALUATING PATIENT.
[2020-08-29] MEDS ORDERED: MORPHINE SULFATE 4 MG/ML SYR IVP ONE (20:45)
[2020-08-29] MEDS ORDERED: ONDANSETRON 4 MG/2 ML VIAL IVP ONE (20:45)
--- NOTE | 2020-08-29 20:45 | NUR ---
39 Y/O M CAME IN TO ER WITH C/O LEFT SHOULDER PAIN 10/10 FOR PAST 2 WEEKS. REPORTS THROBBING PAIN THAT RADIATES DOWN TO LEFT FOOT AND BOTH TOES AND RIGHT PINKY FINGER. UNABLE TO LEFT ARM OR SIT UP IN BED. PT LYING FLAT, SUPINE SIDERAILS UP. FEVER 101. DENIES SOB, COUGHING, N/V/D. PT REPORTS SEEING HIS PRIMARY CARE PROVIDER AND WAS PRESCRIBED MUSCLE RELAXERS BUT WITHOUT RELIEF, PT ALSO WAS TAKING TYLENOL WITH NO RELIEF. SIDE RAILS UP, BED LOCKED AND IN LOWEST POSITION. WILL CONTINUE TO MONITOR. NKA HX: FATTY LIVER WITH EXCESSIVE ETOH ELEVATED BLOOD SUGAR
[2020-08-29 21:17] LABS: BASOPHILS # (AUTO) 0.1 K/uL (0.00-0.22); BASOPHILS % (AUTO) 0.4 % (0.0-2.0); EOSINOPHILS % (AUTO) 0.1 % (0.0-4.0); HEMATOCRIT 30.1 % (36-52); HEMOGLOBIN 9.7 g/dL (12.0-18.0); LYMPHOCYTES # (AUTO) 0.9 K/uL (2.0-11.5); LYMPHOCYTES % (AUTO) 4.6 % (20.5-51.1); MEAN CORPUSCULAR HEMOGLOBIN 26 pg (27-31); MEAN CORPUSCULAR HGB CONC 32 g/dL (33-37); MEAN CORPUSCULAR VOLUME 79.9 fL (80-94); MONOCYTES # (AUTO) 1.4 K/uL (0.8-1.0); MONOCYTES % (AUTO) 6.9 % (1.7-9.3); NEUTROPHILS # (AUTO) 17.4 K/uL (1.8-7.7); PLATELET COUNT (AUTO) 146 K/uL (140-450); RED BLOOD CELL COUNT(AUTO) 3.77 MIL/uL (4.20-6.10); WHITE BLOOD COUNT (AUTO) 19.8 K/uL (4.8-10.8)
[2020-08-29 21:28] LABS: ALBUMIN 2.4 g/dL (3.4-5.0); ANION GAP 11.9 (8-16); CARBON DIOXIDE 25.6 mmol/L (21-32); CREATININE 0.8 mg/dL (0.6-1.3); MAGNESIUM 1.7 mg/dL (1.8-2.4); PHOSPHORUS 2.8 mg/dL (2.5-4.9); POTASSIUM 3.5 mmol/L (3.5-5.1); TOTAL BILIRUBIN 2.8 mg/dL (0.0-1.0)
[2020-08-29] MEDS ORDERED: cefTRIAXone 2,000 MG in DEXTROSE 5% 100 ML IV ONE (21:45)
[2020-08-29] MEDS ORDERED: NACL 0.9% 250 ML IV ONE (21:45)
[2020-08-29] MEDS ORDERED: NACL 0.9% 3,000 ML IV ONE (21:45)
[2020-08-29] MEDS ORDERED: ACETAMINOPHEN 325 MG TAB PO ONE (21:45)
[2020-08-29] MEDS ORDERED: cefTRIAXone 2,000 MG VIAL ONE ×2 (22:20→23:13)
--- NOTE | 2020-08-29 22:24 | NUR ---
PT TAKEN TO CT VIA RAHUL
--- NOTE | 2020-08-29 23:30 | NUR ---
PT RETURNED TO BED 11
--- NOTE | 2020-08-29 23:42 | NUR ---
BRANDEN SWAB COLLECTED AND SENT TO LAB, HANDED TO MARQUISE NGUYEN
[2020-08-30] MEDS ORDERED: NACL 0.9% 2,500 ML IV ONE (00:15)
[2020-08-30] MEDS ORDERED: PIPERACILLIN/TAZOBACTAM 3.375 GM in DEXTROSE 5% 50 ML IV ONE (00:15)
[2020-08-30] MEDS ORDERED: PIPERACILLIN/TAZOBACTAM 3.375 GM VIAL IV ONE (01:45)
--- NOTE | 2020-08-30 02:10 | NUR ---
Patient appears to be resting comfortably in bed. Vital Signs within normal limits BUT HR SLIGHTLY ELEVATED 120 BPM. Respirations even and unlabored. ON ROOM AIR. SAFETY MEASURES IN PLACE.
--- NOTE | 2020-08-30 02:30 | NUR ---
PROVIDED INFORMATION TO JENNIFER FOR TRANSFER INFORMATION. PT MADE AWARE OF TREATMENT PLAN. VERBALIZED UNDERSTANDING. ALL MEDS COMPLETE, FLUSHED AND SALINE LOCKED RIGHT AC 20G.
--- NOTE | 2020-08-30 03:36 | NUR ---
RECEIVED REPORT FROM NEELAM CARROLL FOR CONTINUITY OF CARE
--- NOTE | 2020-08-30 03:36 | NUR ---
REPORT GIVEN TO LIBERTY RICHTER FOR CONTINUITY OF CARE. PT IN STABLE CONDITION. SAFETY MEASURES IN PLACE, CONNECTED TO CONTINOUS MONITORING.
[2020-08-30] MEDS ORDERED: MORPHINE SULFATE 4 MG/ML SYR IVP ONE (03:40)
--- NOTE | 2020-08-30 04:12 | NUR ---
RECEIVED A CALL FROM [facility] PAVING STONE INSTALLER AND WANTED TO SPEAK WITH THE PATIENT
--- NOTE | 2020-08-30 05:03 | NUR ---
GIVEN REPORT TO NEELAM HICKS FOR CONTINUITY OF CARE
--- NOTE | 2020-08-30 06:20 | NUR ---
CALLED [facility] AND GAVE REPORT TO CHARGE NURSE JENNIFER. PT WILL GO TO ROOM 201A AND TYREL BE UNDER THE CARE OF DR. PAREKH. [facility] EST P/U IS 90 MINUTES
--- NOTE | 2020-08-30 07:14 | NUR ---
Pt report given to AFUA RICHTER. Transfer of care at this time.
[2020-08-30] MEDS ORDERED: IBUPROFEN 800 MG TAB PO ONE (07:55)
--- NOTE | 2020-08-30 08:00 | NUR ---
[facility] at bedside.
--- NOTE | 2020-08-30 08:06 | NUR ---
Patient to be transferred to [facility] Is being transferred due to HIGHER LEVEL OF CARE FOR L LUNG ABSCESS. Receiving facility has accepting physician and available space. ER physician has signed transfer form. Patient or responsible constitution party has agreed to transfer and signed form. Patient belongings inventoried and will be sent with patient. Copy of nursing notes, lab reports, EKG, Physicians Orders and X-rays to be sent with patient. Report called to [phone] BY KURT RICHTER at receiving facility. [facility] has been called for transfer. ETA is 90. REPORT WAS GIVEN TO [facility] AND ARE CURRENTLY GETTING PT READY FOR TRANSPORT.
[2020-08-30 08:07] VITALS: BP 136/80
== END 2020-08-30 08:06 ==
LOC: MED 20:06
DX: J85.2 Abscess of lung without pneumonia (principal); A41.9 Sepsis, unspecified organism; M00.879 Arthritis due to other bacteria, unspecified ankle and foot; Z20.822 Contact with and (suspected) exposure to COVID-19
CPT/HCPCS: 36415; 70360; 70491; 71250; 80053; 83605; 83690; 83735; 84100; 85025; 87040; 87426; 96365; 96367; 96375; 96376; 99291; J0696; J2270; J2405; J2543; J7030

== ENCOUNTER 2023-11-11 14:05 | Emergency (ER) | payer SELFPAY ==
[~2023-11-11] VITALS: Ht 177.8 cm; Wt 109.3 kg
[~2023-11-11 14:05] MED LIST changes: +GLIM-24 PO; -GLIM2TAB PO
[2023-11-11 14:34] VITALS: BP 125/76; PULSE 118; RESP 22; TEMP 98.6; O2SAT 98
[2023-11-11 15:37] LABS: BASOPHILS # (AUTO) 0.1 K/uL (0.00-0.22); BASOPHILS % (AUTO) 1.3 % (0.0-2.0); EOSINOPHILS # (AUTO) 0.1 K/uL (0-0.4); EOSINOPHILS % (AUTO) 2.4 % (0.0-4.0); HEMATOCRIT 24.2 % (36-52); HEMOGLOBIN 8.1 g/dL (12.0-18.0); LYMPHOCYTES # (AUTO) 0.9 K/uL (2.0-11.5); LYMPHOCYTES % (AUTO) 21.8 % (20.5-51.1); MEAN CORPUSCULAR HEMOGLOBIN 33 pg (27-31); MEAN CORPUSCULAR HGB CONC 34 g/dL (33-37); MEAN CORPUSCULAR VOLUME 97.3 fL (80-94); MONOCYTES # (AUTO) 0.5 K/uL (0.8-1.0); MONOCYTES % (AUTO) 12.8 % (1.7-9.3); NEUTROPHILS # (AUTO) 2.4 K/uL (1.8-7.7); NEUTROPHILS % (AUTO) 61.7 % (42.2-75.2); PLATELET COUNT (AUTO) 59 K/uL (140-450); RED BLOOD CELL COUNT(AUTO) 2.49 MIL/uL (4.20-6.10); RED CELL DISTRIBUTION WIDTH 17.5 % (11.6-13.7); WHITE BLOOD COUNT (AUTO) 3.9 K/uL (4.8-10.8)
[2023-11-11 15:49] LABS: ANION GAP 12.8 (8-16); CALCIUM 7.7 mg/dL (8.5-10.1); CARBON DIOXIDE 21.7 mmol/L (21-32); POTASSIUM 3.5 mmol/L (3.5-5.1)
[2023-11-11 15:56] LABS: INR 2.18 (0.8-1.2)
[2023-11-11 15:57] LABS: ALBUMIN 2.1 g/dL (3.4-5.0); BILIRUBIN,DIRECT 4.3 mg/dL (0.0-0.3); TOTAL BILIRUBIN 8.7 mg/dL (0.0-1.0); TOTAL PROTEIN, SERUM 6.9 g/dL (6.4-8.2)
[2023-11-11 17:15] VITALS: O2SAT 100
[2023-11-11 17:44] LABS: GLUCOSE,BODY FLUID 125 mg/dL; PROTEIN, BODY FLUID 0.9 g/dL
[2023-11-11 17:49] LABS: APPEARANCE,SPUN,BODY FLUID CLEAR (CLEAR); APPEARANCE,UNSPUN,BODY FLUID CLEAR (CLEAR); COLOR,BODY FLUID YELLOW (LT YELLOW); POLYNUCLEAR, BODY FLUID 0 %; RBC, BODY FLUID 1089 /cu. mm.; SPECIMENTYPE,BODY FLUID ASCITES; TOTAL VOLUME,BODY FLUID 70 mL; WBC, BODY FLUID 0 /cu. mm.
[2023-11-11] MEDS ORDERED: PROP20TA29 PO (18:07)
[2023-11-11] MEDS ORDERED: FURO-572 PO (18:07)
[2023-11-11 18:10] VITALS: BP 128/76; PULSE 88; RESP 16; TEMP 98.1; O2SAT 100
== END 2023-11-11 18:10 | disposition home or self-care (01) ==
LOC: MED 14:05
DX: K70.31 Alcoholic cirrhosis of liver with ascites (principal); E11.9 Type 2 diabetes mellitus without complications; Z79.899 Other long term (current) drug therapy
CPT/HCPCS: 36415; 49083; 80048; 80076; 82150; 82945; 83615; 83690; 84157; 85025; 85610; 87070; 87075; 87186; 87205; 89051; 99285

== ENCOUNTER 2023-11-18 16:29 | Inpatient (IN) | payer MEDICAID ==
[~2023-11-18] VITALS: Ht 180.3 cm; Wt 104.3 kg
[~2023-11-18 16:29] MED LIST changes: +FURO-572 PO
[2023-11-18 16:53] VITALS: BP 118/64; PULSE 109; RESP 18; TEMP 97.8; O2SAT 100
[2023-11-18] MEDS: ONDANSETRON 4 MG/2 ML VIAL IVP ONE (18:57)
[2023-11-18] MEDS: MORPHINE SULFATE 4 MG/ML SYR IVP ONE ×2 (19:00→21:40)
[2023-11-18 19:03] LABS: EOSINOPHILS # (AUTO) 0.1 K/uL (0-0.4); HEMATOCRIT 20.7 % (36-52); LYMPHOCYTES # (AUTO) 0.9 K/uL (2.0-11.5); LYMPHOCYTES % (AUTO) 20.9 % (20.5-51.1); MEAN CORPUSCULAR HEMOGLOBIN 32 pg (27-31); MEAN CORPUSCULAR HGB CONC 33 g/dL (33-37); MONOCYTES # (AUTO) 0.7 K/uL (0.8-1.0); NEUTROPHILS # (AUTO) 2.7 K/uL (1.8-7.7); NEUTROPHILS % (AUTO) 61.1 % (42.2-75.2); PLATELET COUNT (AUTO) 87 K/uL (140-450); RED BLOOD CELL COUNT(AUTO) 2.15 MIL/uL (4.20-6.10); RED CELL DISTRIBUTION WIDTH 17.6 % (11.6-13.7); WHITE BLOOD COUNT (AUTO) 4.4 K/uL (4.8-10.8)
[2023-11-18 19:10] LABS: HEMOGLOBIN 6.8 g/dL (12.0-18.0)
[2023-11-18 19:16] LABS: CALCIUM 7.9 mg/dL (8.5-10.1); CARBON DIOXIDE 21.5 mmol/L (21-32); POTASSIUM 3.5 mmol/L (3.5-5.1)
[2023-11-18 19:17] LABS: INR 1.79 (0.8-1.2); PROTHROMBIN TIME 18.3 secs (10.8-13.4)
[2023-11-18 19:22] LABS: ALBUMIN 2.2 g/dL (3.4-5.0); BILIRUBIN,DIRECT 4.3 mg/dL (0.0-0.3); TOTAL BILIRUBIN 9.3 mg/dL (0.0-1.0); TOTAL PROTEIN, SERUM 6.9 g/dL (6.4-8.2)
[2023-11-18] MEDS ORDERED: MORPHINE SULFATE 4 MG/ML SYR ONE (21:37)
[2023-11-18] MEDS ORDERED: cefTRIAXone 1,000 MG VIAL ONE (22:21)
[2023-11-18] MEDS ORDERED: ACETAMINOPHEN 325 MG TAB PO PRN (23:05)
[2023-11-18] MEDS ORDERED: ACET-8905 PO (23:08)
[2023-11-18] MEDS: LACTATED RINGERS 1,000 ML IV SCH (23:16)
[2023-11-19] MEDS: MORPHINE SULFATE 2 MG/ML SYR IVP PRN (00:51)
[2023-11-19 09:10] VITALS: BP 122/67; PULSE 81; PULSE 91; RESP 18; TEMP 96.6; O2SAT 91; O2SAT 98
[2023-11-19] MEDS: NACL 0.9% 1,000 ML IV SCH (09:35)
[2023-11-19] MEDS: MORPHINE SULFATE 2 MG/ML SYR IVP ONE (09:57)
[2023-11-19 10:07] LABS: EOSINOPHILS # (AUTO) 0.1 K/uL (0-0.4); HEMATOCRIT 21.4 % (36-52); HEMOGLOBIN 7.1 g/dL (12.0-18.0); LYMPHOCYTES # (AUTO) 0.7 K/uL (2.0-11.5); LYMPHOCYTES % (AUTO) 20.8 % (20.5-51.1); MEAN CORPUSCULAR HEMOGLOBIN 31 pg (27-31); MEAN CORPUSCULAR HGB CONC 33 g/dL (33-37); MEAN CORPUSCULAR VOLUME 93.9 fL (80-94); MONOCYTES # (AUTO) 0.5 K/uL (0.8-1.0); MONOCYTES % (AUTO) 13.8 % (1.7-9.3); NEUTROPHILS # (AUTO) 2.1 K/uL (1.8-7.7); NEUTROPHILS % (AUTO) 62.4 % (42.2-75.2); PLATELET COUNT (AUTO) 61 K/uL (140-450); RED BLOOD CELL COUNT(AUTO) 2.27 MIL/uL (4.20-6.10); RED CELL DISTRIBUTION WIDTH 17.4 % (11.6-13.7); WHITE BLOOD COUNT (AUTO) 3.3 K/uL (4.8-10.8)
[2023-11-19 10:11] LABS: ALBUMIN 1.7 g/dL (3.4-5.0); ANION GAP 8.4 (8-16); CALCIUM 7.7 mg/dL (8.5-10.1); CARBON DIOXIDE 23.4 mmol/L (21-32); CREATININE 0.8 mg/dL (0.6-1.3); MAGNESIUM 1.8 mg/dL (1.8-2.4); POTASSIUM 3.8 mmol/L (3.5-5.1); TOTAL BILIRUBIN 7.7 mg/dL (0.0-1.0); TOTAL PROTEIN, SERUM 5.6 g/dL (6.4-8.2)
[2023-11-19 19:18] VITALS: BP 117/69; PULSE 85; RESP 16; TEMP 97.5; O2SAT 98
[2023-11-19 20:00] VITALS: PULSE 85; RESP 16; O2SAT 98
[2023-11-19] MEDS ORDERED: MORPHINE SULFATE 4 MG/ML SYR IVP PRN (20:20)
[2023-11-19 20:55] LABS: HEMOGLOBIN 7.3 g/dL (12.0-18.0)
[2023-11-19] MEDS: LACTULOSE 20 GM/30 ML UDC PO SCH (21:13)
[2023-11-19] MEDS: PROPRANOLOL 20 MG TAB PO SCH (21:13)
[2023-11-19] MEDS: PANTOPRAZOLE 40 MG INJ VIAL IVP SCH (21:34)
[2023-11-19] MEDS: MORPHINE SULFATE 4 MG/ML SYR IVP PRN (21:58)
[2023-11-20 03:18] VITALS: BP 108/62; PULSE 82; RESP 17; TEMP 97.3; O2SAT 96
[2023-11-20] MEDS: HYDROcodone/APAP 5/325 MG 1 TAB TAB PO PRN (04:12)
[2023-11-20 05:58] LABS: ANION GAP 9.2 (8-16); CALCIUM 7.3 mg/dL (8.5-10.1); CARBON DIOXIDE 22.7 mmol/L (21-32); CREATININE 0.9 mg/dL (0.6-1.3); POTASSIUM 3.9 mmol/L (3.5-5.1)
[2023-11-20 06:01] LABS: BASOPHILS % (AUTO) 1.1 % (0.0-2.0); EOSINOPHILS # (AUTO) 0.1 K/uL (0-0.4); EOSINOPHILS % (AUTO) 3.7 % (0.0-4.0); HEMATOCRIT 21.2 % (36-52); HEMOGLOBIN 7.2 g/dL (12.0-18.0); LYMPHOCYTES # (AUTO) 0.8 K/uL (2.0-11.5); LYMPHOCYTES % (AUTO) 22.1 % (20.5-51.1); MEAN CORPUSCULAR HEMOGLOBIN 32 pg (27-31); MEAN CORPUSCULAR HGB CONC 34 g/dL (33-37); MEAN CORPUSCULAR VOLUME 93.3 fL (80-94); MONOCYTES # (AUTO) 0.5 K/uL (0.8-1.0); NEUTROPHILS % (AUTO) 58.1 % (42.2-75.2); PLATELET COUNT (AUTO) 66 K/uL (140-450); RED BLOOD CELL COUNT(AUTO) 2.27 MIL/uL (4.20-6.10); RED CELL DISTRIBUTION WIDTH 17.4 % (11.6-13.7); WHITE BLOOD COUNT (AUTO) 3.5 K/uL (4.8-10.8)
[2023-11-20 08:00] VITALS: BP 119/65; PULSE 80; RESP 18; TEMP 97.9; O2SAT 97
[2023-11-20] MEDS: FUROSEMIDE 20 MG TAB PO SCH (08:56)
[2023-11-20 09:00] VITALS: PULSE 85; RESP 16; O2SAT 98
[2023-11-20] MEDS ORDERED: ACET-9527 PO (11:57)
[2023-11-20 15:06] VITALS: BP 119/65; PULSE 80; RESP 18; TEMP 97.9
== END 2023-11-20 16:00 | disposition home or self-care (01) | DRG 813 ==
LOC: MED 16:29 → MMU 11-19 08:15 → MTU 11-19 08:41
PROVIDERS: ADMIT Student in an Organized Health Care Education/Training Program; ATTEND Student in an Organized Health Care Education/Training Program
PROC: 30233N1 Transfusion of Nonautologous Red Blood Cells into Peripheral Vein, Percutaneous Approach (ICD-10-PCS; principal; 2023-11-18)
DX: K91.71 Accidental puncture and laceration of a digestive system organ or structure during a digestive system procedure (principal); E43 Unspecified severe protein-calorie malnutrition; E83.51 Hypocalcemia; K70.30 Alcoholic cirrhosis of liver without ascites; D64.89 Other specified anemias; E11.9 Type 2 diabetes mellitus without complications; K64.8 Other hemorrhoids; S30.1XXA Contusion of abdominal wall, initial encounter; Z79.899 Other long term (current) drug therapy; Z68.21 Body mass index [BMI] 21.0-21.9, adult; Y92.89 Other specified places as the place of occurrence of the external cause; Y93.89 Activity, other specified
CPT/HCPCS: 36415; 36430; 80048; 80053; 80076; 82272; 83690; 83735; 84100; 85018; 85025; 85610; 86886; 86900; 86901; 86920; 87040; 87081; 96361; 96374; 96375; 96376; 99291; J0696; J2270; J2405; J2470; P9016; Q9967

== ENCOUNTER 2023-12-06 20:36 | Inpatient (IN) | payer MEDICAID ==
[~2023-12-06] VITALS: Ht 180.3 cm; Wt 116.1 kg
[~2023-12-06 20:36] MED LIST changes: +ACET-8905 PO; +ACET-9527 PO
[2023-12-06 20:41] VITALS: BP 112/56; PULSE 77; RESP 18; TEMP 97.8; O2SAT 99
[2023-12-06 23:32] LABS: BASOPHILS # (AUTO) 0.1 K/uL (0.00-0.22); BASOPHILS % (AUTO) 1.9 % (0.0-2.0); EOSINOPHILS # (AUTO) 0.2 K/uL (0-0.4); EOSINOPHILS % (AUTO) 4.2 % (0.0-4.0); HEMATOCRIT 22.5 % (36-52); HEMOGLOBIN 7.4 g/dL (12.0-18.0); LYMPHOCYTES # (AUTO) 1.3 K/uL (2.0-11.5); LYMPHOCYTES % (AUTO) 35.4 % (20.5-51.1); MEAN CORPUSCULAR HEMOGLOBIN 30 pg (27-31); MEAN CORPUSCULAR HGB CONC 33 g/dL (33-37); MEAN CORPUSCULAR VOLUME 92.7 fL (80-94); MONOCYTES # (AUTO) 0.4 K/uL (0.8-1.0); MONOCYTES % (AUTO) 11.2 % (1.7-9.3); NEUTROPHILS # (AUTO) 1.8 K/uL (1.8-7.7); NEUTROPHILS % (AUTO) 47.3 % (42.2-75.2); PLATELET COUNT (AUTO) 71 K/uL (140-450); RED BLOOD CELL COUNT(AUTO) 2.43 MIL/uL (4.20-6.10); WHITE BLOOD COUNT (AUTO) 3.8 K/uL (4.8-10.8)
[2023-12-06 23:43] LABS: ANION GAP 10.9 (8-16); CALCIUM 8.4 mg/dL (8.5-10.1); CARBON DIOXIDE 24.1 mmol/L (21-32); CREATININE 1.1 mg/dL (0.6-1.3)
[2023-12-06 23:47] LABS: BILIRUBIN,DIRECT 3.3 mg/dL (0.0-0.3); TOTAL BILIRUBIN 6.9 mg/dL (0.0-1.0); TOTAL PROTEIN, SERUM 6.7 g/dL (6.4-8.2)
[2023-12-07 00:15] LABS: APPEARANCE,URINE CLEAR (CLEAR); BILIRUBIN,URINE 2+ (NEGATIVE); BLOOD, URINE NEGATIVE (NEGATIVE); COLOR,URINE YELLOW (YELLOW); LEUKOCYTE ESTERASE ,URINE NEGATIVE (NEGATIVE); NITRITE, URINE NEGATIVE (NEGATIVE); PH,URINE 6.5 (5.0-9.0); PROTEIN,URINE NEGATIVE (NEGATIVE); UGLUCOSE TRACE (NEGATIVE)
[2023-12-07 00:16] LABS: ICTOTEST POSITIVE (NEGATIVE)
[2023-12-07 00:17] VITALS: PULSE 105; RESP 22; O2SAT 98
[2023-12-07] MEDS: MORPHINE SULFATE 4 MG/ML SYR IVP ONE (00:19)
[2023-12-07] MEDS ORDERED: PROP20TA28 PO (01:18)
[2023-12-07] MEDS ORDERED: FURO-572 PO (01:18)
[2023-12-07] MEDS: LACTULOSE 20 GM/30 ML UDC PO ONE (01:30)
[2023-12-07] MEDS ORDERED: LACTULOSE 20 GM/30 ML UDC ONE ×2 (01:45→01:47)
[2023-12-07 03:52] VITALS: BP 117/65; PULSE 83; RESP 18; TEMP 97.4; O2SAT 99
[2023-12-07 03:56] VITALS: RESP 18; O2SAT 99
[2023-12-07] MEDS: MORPHINE SULFATE 2 MG/ML SYR IVP PRN (04:32)
[2023-12-07 08:00] VITALS: BP 106/60; PULSE 80; RESP 18; TEMP 97.3; O2SAT 96
[2023-12-07 10:45] LABS: INR 1.74 (0.8-1.2); PROTHROMBIN TIME 17.7 secs (10.8-13.4)
[2023-12-07] MEDS: PROPRANOLOL 20 MG TAB PO SCH (14:27)
[2023-12-07] MEDS: FUROSEMIDE 20 MG TAB PO SCH (14:27)
[2023-12-07 16:00] VITALS: BP 118/58; PULSE 85; RESP 18; TEMP 98; O2SAT 97
[2023-12-07] MEDS: FUROSEMIDE 40 MG/4 ML VIAL IVP SCH ×2 (18:09→21:15)
[2023-12-07] MEDS: SPIRONOLACTONE 50 MG TAB PO SCH (18:19)
[2023-12-07 20:00] VITALS: BP 113/58; PULSE 85; PULSE 86; RESP 18; TEMP 98.6; O2SAT 95; O2SAT 97
[2023-12-07] MEDS: HYDROCORTISONE SUPPOSITORY 25 MG SUPP RC SCH (21:54)
[2023-12-07] MEDS: HYDROcodone/APAP 7.5/325 MG 1 TAB PO PRN (23:29)
[2023-12-08 04:00] VITALS: BP 100/54; PULSE 86; RESP 18; TEMP 98.6; O2SAT 95
[2023-12-08 07:06] LABS: ALBUMIN 1.7 g/dL (3.4-5.0); ANION GAP 8.6 (8-16); CALCIUM 7.7 mg/dL (8.5-10.1); CARBON DIOXIDE 26.5 mmol/L (21-32); CREATININE 1.1 mg/dL (0.6-1.3); MAGNESIUM 1.5 mg/dL (1.8-2.4); PHOSPHORUS 3.9 mg/dL (2.5-4.9); POTASSIUM 3.1 mmol/L (3.5-5.1); TOTAL BILIRUBIN 5.7 mg/dL (0.0-1.0); TOTAL PROTEIN, SERUM 5.9 g/dL (6.4-8.2)
[2023-12-08 08:00] VITALS: PULSE 78; RESP 18; O2SAT 95
[2023-12-08 08:01] LABS: MEAN CORPUSCULAR HEMOGLOBIN 30 pg (27-31); WHITE BLOOD COUNT (AUTO) 3.3 K/uL (4.8-10.8)
[2023-12-08 08:15] LABS: MEAN CORPUSCULAR HGB CONC 33 g/dL (33-37); MEAN CORPUSCULAR VOLUME 92.1 fL (80-94); PLATELET COUNT (AUTO) 62 K/uL (140-450); RED BLOOD CELL COUNT(AUTO) 2.16 MIL/uL (4.20-6.10); RED CELL DISTRIBUTION WIDTH 19.1 % (11.6-13.7)
[2023-12-08 08:42] LABS: HEMOGLOBIN 6.5 g/dL (12.0-18.0)
[2023-12-08 08:43] LABS: HEMATOCRIT 19.9 % (36-52)
[2023-12-08] MEDS ORDERED: DOCUSATE SODIUM 100 MG GELCAP PO SCH (09:00)
[2023-12-08] MEDS: SPIRONOLACTONE 50 MG TAB PO SCH (09:00)
[2023-12-08 09:01] LABS: BASOPHILS % (MANUAL) 0 % (0-2); BLASTS, MANUAL % 0 % (0-0); EOSINOPHILS % (MANUAL) 4 % (0-4); LYMPHOCYTES % (MANUAL) 20 % (20-46); METAMYELOCYTES % 0 % (0-0); MONOCYTES % (MANUAL) 11 % (5-12); MYELOCYTES % 0 % (0-0); OTHER CELLS,MANUAL % 0 (0-0); PLASMA CELLS 0; PLATELET ESTIMATE DECREASED; PROMYELOCYTES % 0 % (0-0); SMUDGE CELLS 0
[2023-12-08] MEDS: LACTULOSE 20 GM/30 ML UDC PO SCH ×2 (09:01→13:50)
[2023-12-08 09:02] LABS: ANISOCYTOSIS 1+
[2023-12-08 11:49] VITALS: BP 102/63; PULSE 89; RESP 18; TEMP 98.4; O2SAT 99
[2023-12-08] MEDS ORDERED: PHYTONADIONE 10 MG/ML AMP IV ONE (12:00)
[2023-12-08] MEDS: MIDAZOLAM 5 MG/5 ML VIAL ONE (12:53)
[2023-12-08] MEDS: fentaNYL citrate 0.05 MG/ML VIAL ONE (12:53)
[2023-12-08] MEDS: diphenhydrAMINE 50 MG/ML VIAL ONE (12:53)
[2023-12-08] MEDS: PHYTONADIONE 10 MG in NACL 0.9% 50 ML IV SCH ×2 (13:00→22:03)
[2023-12-08] MEDS: fentaNYL citrate 0.05 MG/ML VIAL IVP ONE (13:28)
[2023-12-08] MEDS: MIDAZOLAM 2 MG/2 ML VIAL IVP ONE (13:29)
[2023-12-08] MEDS: PROPRANOLOL 20 MG TAB PO SCH (13:50)
[2023-12-08] MEDS: POTASSIUM CHLORIDE 40 MEQ, LIDOCAINE 1% 25 MG in NACL 0.9% 250 ML IV SCH (15:00)
[2023-12-08] MEDS: POTASSIUM CHLORIDE 10 MEQ TABER PO PRN (15:06)
[2023-12-08 19:36] LABS: GLUCOSE,BODY FLUID 119 mg/dL
[2023-12-08 20:00] VITALS: BP 100/45; PULSE 74; PULSE 87; RESP 18; TEMP 98.4; O2SAT 96; O2SAT 97
[2023-12-08 20:17] LABS: APPEARANCE,SPUN,BODY FLUID CLEAR (CLEAR); APPEARANCE,UNSPUN,BODY FLUID CLEAR (CLEAR); COLOR,BODY FLUID YELLOW (LT YELLOW); SPECIMENTYPE,BODY FLUID PARACENTESIS; TOTAL VOLUME,BODY FLUID 6425 mL
[2023-12-08 20:25] LABS: RBC, BODY FLUID 180 /cu. mm.; WBC, BODY FLUID 9 /cu. mm.
[2023-12-08 22:49] LABS: HEMOGLOBIN 8.6 g/dL (12.0-18.0)
[2023-12-09 04:00] VITALS: BP 108/64; PULSE 81; RESP 18; TEMP 97.8; O2SAT 99
[2023-12-09 07:03] LABS: EOSINOPHILS # (AUTO) 0.1 K/uL (0-0.4); EOSINOPHILS % (AUTO) 2.8 % (0.0-4.0); HEMATOCRIT 24.5 % (36-52); HEMOGLOBIN 8.1 g/dL (12.0-18.0); LYMPHOCYTES # (AUTO) 0.7 K/uL (2.0-11.5); LYMPHOCYTES % (AUTO) 17.4 % (20.5-51.1); MEAN CORPUSCULAR HEMOGLOBIN 30 pg (27-31); MEAN CORPUSCULAR HGB CONC 33 g/dL (33-37); MEAN CORPUSCULAR VOLUME 90.2 fL (80-94); MONOCYTES # (AUTO) 0.4 K/uL (0.8-1.0); MONOCYTES % (AUTO) 11.9 % (1.7-9.3); NEUTROPHILS # (AUTO) 2.5 K/uL (1.8-7.7); NEUTROPHILS % (AUTO) 66.9 % (42.2-75.2); PLATELET COUNT (AUTO) 53 K/uL (140-450); RED BLOOD CELL COUNT(AUTO) 2.71 MIL/uL (4.20-6.10); RED CELL DISTRIBUTION WIDTH 18.2 % (11.6-13.7); WHITE BLOOD COUNT (AUTO) 3.7 K/uL (4.8-10.8)
[2023-12-09 07:08] LABS: CALCIUM 7.7 mg/dL (8.5-10.1); CREATININE 1.1 mg/dL (0.6-1.3); POTASSIUM 3.2 mmol/L (3.5-5.1)
[2023-12-09 07:19] LABS: ANION GAP 12.6 (8-16); CARBON DIOXIDE 21.6 mmol/L (21-32)
[2023-12-09 07:21] LABS: MAGNESIUM 1.7 mg/dL (1.8-2.4); PHOSPHORUS 3.4 mg/dL (2.5-4.9)
[2023-12-09 08:00] VITALS: PULSE 83; RESP 18; O2SAT 100
[2023-12-09] MEDS: SPIRONOLACTONE 50 MG TAB PO SCH (09:00)
[2023-12-09 11:49] VITALS: BP 107/58; PULSE 83; RESP 18; TEMP 96.6; O2SAT 100
[2023-12-09] MEDS: POTASSIUM CHLORIDE 40 MEQ, LIDOCAINE 1% 25 MG in NACL 0.9% 250 ML IV SCH (12:17)
[2023-12-09] MEDS: ALBUMIN HUMAN 5 % 250 ML IV SCH (13:44)
[2023-12-09 20:00] VITALS: BP 115/61; PULSE 84; PULSE 85; RESP 18; TEMP 98; O2SAT 100; O2SAT 95
[2023-12-10 04:00] VITALS: BP 113/58; PULSE 89; RESP 17; TEMP 97.8; O2SAT 98
[2023-12-10 06:58] LABS: BASOPHILS % (AUTO) 0.9 % (0.0-2.0); EOSINOPHILS # (AUTO) 0.2 K/uL (0-0.4); EOSINOPHILS % (AUTO) 4.3 % (0.0-4.0); HEMATOCRIT 24.6 % (36-52); HEMOGLOBIN 8.3 g/dL (12.0-18.0); LYMPHOCYTES % (AUTO) 25.9 % (20.5-51.1); MEAN CORPUSCULAR HEMOGLOBIN 30 pg (27-31); MEAN CORPUSCULAR HGB CONC 34 g/dL (33-37); MONOCYTES # (AUTO) 0.5 K/uL (0.8-1.0); MONOCYTES % (AUTO) 12.8 % (1.7-9.3); NEUTROPHILS # (AUTO) 2.2 K/uL (1.8-7.7); NEUTROPHILS % (AUTO) 56.1 % (42.2-75.2); RED BLOOD CELL COUNT(AUTO) 2.74 MIL/uL (4.20-6.10); RED CELL DISTRIBUTION WIDTH 18.3 % (11.6-13.7); WHITE BLOOD COUNT (AUTO) 3.9 K/uL (4.8-10.8)
[2023-12-10 07:17] LABS: MAGNESIUM 1.4 mg/dL (1.8-2.4); PHOSPHORUS 3.3 mg/dL (2.5-4.9)
[2023-12-10 07:21] LABS: ANION GAP 11.1 (8-16); CALCIUM 7.7 mg/dL (8.5-10.1); POTASSIUM 3.1 mmol/L (3.5-5.1)
[2023-12-10 07:42] LABS: PLATELET COUNT (AUTO) 57 K/uL (140-450)
[2023-12-10 08:00] VITALS: PULSE 85; RESP 18; O2SAT 100
[2023-12-10] MEDS: ONDANSETRON 4 MG/2 ML VIAL IM/IVP PRN (08:48)
[2023-12-10] MEDS: MAGNESIUM OXIDE 400 MG TAB PO SCH (08:50)
[2023-12-10] MEDS ORDERED: SPIR50TA PO (10:55)
[2023-12-10] MEDS ORDERED: PROP20TA28 PO (10:56)
[2023-12-10] MEDS ORDERED: FURO-572 PO (10:57)
[2023-12-10] MEDS ORDERED: LACT-85 PO (10:58)
[2023-12-10] MEDS ORDERED: LACT-191 PO (10:59)
[2023-12-10 11:49] VITALS: BP 100/58; PULSE 76; RESP 18; TEMP 98.3; O2SAT 99
[2023-12-10 13:42] VITALS: BP 100/58; PULSE 76; RESP 18; TEMP 98.3
== END 2023-12-10 14:54 | disposition home or self-care (01) | DRG 280 ==
LOC: MED 20:36 → MTU 12-07 01:26
PROVIDERS: ADMIT Student in an Organized Health Care Education/Training Program; ATTEND Student in an Organized Health Care Education/Training Program
PROC: 30233N1 Transfusion of Nonautologous Red Blood Cells into Peripheral Vein, Percutaneous Approach (ICD-10-PCS; 2023-12-08)
PROC: 0W9G3ZZ Drainage of Peritoneal Cavity, Percutaneous Approach (ICD-10-PCS; 2023-12-08)
PROC: 06L38CZ Occlusion of Esophageal Vein with Extraluminal Device, Via Natural or Artificial Opening Endoscopic (ICD-10-PCS; principal; 2023-12-08 11:50)
DX: K70.31 Alcoholic cirrhosis of liver with ascites (principal); K76.6 Portal hypertension; E44.1 Mild protein-calorie malnutrition; R65.10 Systemic inflammatory response syndrome (SIRS) of non-infectious origin without acute organ dysfunction; I85.10 Secondary esophageal varices without bleeding; D64.9 Anemia, unspecified; F10.10 Alcohol abuse, uncomplicated; E66.9 Obesity, unspecified; E11.9 Type 2 diabetes mellitus without complications; K64.8 Other hemorrhoids; K31.89 Other diseases of stomach and duodenum; Z91.199 Patient's noncompliance with other medical treatment and regimen due to unspecified reason; Z68.35 Body mass index [BMI] 35.0-35.9, adult
CPT/HCPCS: 36415; 49083; 76705; 80048; 80053; 80076; 81003; 82105; 82945; 83690; 83735; 84100; 84157; 85018; 85025; 85610; 86886; 86900; 86901; 86920; 87040; 87070; 87075; 87081; 87205; 89051; 96374; 99285; J0696; J1200; J1940; J2001; J2250; J2270; J2405; J3010; J3430; J3480; J7030; J7060; P9016; P9041; Q0092